=== PATIENT | female | born 1950 | race Caucasian/White ===

== ENCOUNTER 2019-02-16 16:55 | Emergency (ER) | payer MEDICARE, BC ==
--- NOTE | 2019-02-16 17:54 | EDM.PDOC ---
ED HPI GENERAL MEDICAL PROBLEM - General Chief Complaint: Cardiovascular Problem Stated Complaint: SENT OVER FROM CLINIC Time Seen by Provider: 02/16/19 17:43 Source of Information: Reports: Patient, Old Records, RN Notes Reviewed History Limitations: Reports: No Limitations - History of Present Illness INITIAL COMMENTS - FREE TEXT/NARRATIVE: Patient is a 68-year-old female who presents to the ED for the evaluation of abnormal lab work done at the clinic today. The patient was told that she needed to come to the ER as one of her lab values were abnormal. She did have a d-dimer of 1.66. The patient also characterizes that she's had swelling to her lower legs this past week which is much more than she normally does. She also states she's had some on and off shortness of breath but nothing is completely unusual for her. She denies any chest pain at this time. She states that she has had bronchitis for roughly 2 weeks so did not think much of the shortness of breath. She states that she is a former smoker but has quit. She does not note a history of any blood clotting issues, nor does she states she is on any blood thinners. - Related Data Allergies Allergy/AdvReac Type Severity Reaction Status Date / Time Penicillins Allergy Itching Verified 02/16/19 17:17 Past Medical History Musculoskeletal History: Reports: RA, Other (See Below) Other Musculoskeletal History: bunionectomy bilat - Past Surgical History HEENT Surgical History: Reports: Tonsillectomy GI Surgical History: Reports: Bariatric Procedure Social & Family History - Tobacco Use Smoking Status *Q: Former Smoker Used Tobacco, but Quit: Yes Month/Year Tobacco Last Used: 7 yrs - Caffeine Use Caffeine Use: Reports: Coffee, Soda - Recreational Drug Use Recreational Drug Use: No ED ROS GENERAL - Review of Systems Review Of Systems: See Below Constitutional: Reports: No Symptoms HEENT: Reports: No Symptoms Respiratory: Reports: Shortness of Breath, Cough Cardiovascular: Denies: Chest Pain, Orthopnea Endocrine: Reports: No Symptoms GI/Abdominal: Reports: No Symptoms : Reports: No Symptoms Musculoskeletal: Reports: No Symptoms Skin: Reports: Other (bilateral leg swelling.). Denies: Erythema Neurological: Reports: No Symptoms Psychiatric: Reports: No Symptoms Hematologic/Lymphatic: Reports: No Symptoms ED EXAM, GENERAL - Physical Exam Exam: See Below Exam Limited By: No Limitations General Appearance: Alert, WD/WN, No Apparent Distress Eye Exam: Left Eye: Normal Inspection Throat/Mouth: Normal Inspection, Normal Lips, Normal Teeth, Normal Gums, Normal Oropharynx, Normal Voice, No Airway Compromise Head: Atraumatic, Normocephalic Neck: Normal Inspection Respiratory/Chest: No Respiratory Distress, Lungs Clear, Normal Breath Sounds, No Accessory Muscle Use, Chest Non-Tender Cardiovascular: Normal Peripheral Pulses, Regular Rate, Rhythm, No Murmur, Tachycardia (107 via tele monitor) GI/Abdominal: Normal Bowel Sounds, Soft, Non-Tender, No Distention, No Mass Extremities: Normal Inspection, Normal Capillary Refill, Pedal Edema (bilateral pedal edema) Neurological: Alert, Oriented, Normal Cognition, No Motor/Sensory Deficits Psychiatric: Normal Affect, Normal Mood Skin Exam: Warm, Dry, Intact, Normal Color, No Rash Course - Vital Signs Last Recorded V/S: Last Vital Signs Temp 99.2 F 02/16/19 17:22 Pulse 98 02/16/19 17:22 Resp 20 02/16/19 17:22 BP 150/82 H 02/16/19 17:22 Pulse Ox 96 02/16/19 17:22 - Orders/Labs/Meds Orders: Active Orders 24 hr Category Date Time Status Sodium Chloride 0.9% [Normal Saline] 100 ml Med 02/16/19 18:15 Active IV ASDIRECTED Sodium Chloride 0.9% [Saline Flush] Med 02/16/19 18:05 Active 10 ml FLUSH ONETIME PRN Medication Orders Sodium Chloride (Normal Saline) 100 mls @ 80 mls/hr IV ASDIRECTED JAYME Last Admin: 02/16/19 18:26 Dose: 80 mls/hr Sodium Chloride (Saline Flush) 10 ml FLUSH ONETIME PRN PRN Reason: KEEP VEIN OPEN Last Admin: 02/16/19 18:26 Dose: 10 ml Meds: Medications Generic Name Dose Route Start Last Admin Trade Name Freq PRN Reason Stop Dose Admin Sodium Chloride 100 mls @ 80 mls/hr 02/16/19 18:15 02/16/19 18:26 Normal Saline IV 80 mls/hr ASDIRECTED JAYME Administration Sodium Chloride 10 ml 02/16/19 18:05 02/16/19 18:26 Saline Flush FLUSH 10 ml ONETIME PRN Administration KEEP VEIN OPEN Discontinued Medications Generic Name Dose Route Start Last Admin Trade Name Freq PRN Reason Stop Dose Admin Iohexol 75 ml 02/16/19 18:05 02/16/19 18:25 Omnipaque IVPUSH 02/16/19 18:06 75 ml ONETIME ONE Administration - Re-Assessments/Exams Free Text/Narrative Re-Assessment/Exam: 02/16/19 18:07 Patient presents to the ED for evaluation of an elevated d-dimer. She is having some shortness of breath, and she is tachycardic via laboratory monitor at roughly 107. Her SPO2 is 95-96% on room air. She will get a CT angio for further evaluation of a possible pulmonary embolus. She will be placed on blood thinners if indicated. 02/16/19 18:56 CT angio is negative for PE, I will order a doppler US of RLE to evaluated for possible DVT. Pt is okay with this. 02/16/19 21:17 Patient's lower leg ultrasound does not demonstrate any sign of a deep vein thrombosis within the right lower extremity or within the left common femoral vein. Will relay this information patient and discharge her home with general recommendations. Departure - Departure Time of Disposition: 21:18 Disposition: Home, Self-Care 01 Condition: Fair Clinical Impression: Abnormal laboratory test result Instructions: Edema, [id number] Referrals: PCP,None [Primary Care Provider] - Forms: ED Department Discharge Additional Instructions: You have been evaluated in the ED today for your abnormal lab value done in the clinic today. Your d-dimer was elevated at 1.66. You did receive a CT angiogram of your chest to evaluate for pulmonary embolus, and a right lower leg ultrasound to evaluate for a deep vein thrombosis. Both of these tests were negative. You do not need anticoagulation at this time. Your d-dimer may have been elevated due to your recent bronchitis, but evaluation was needed to rule out PE and DVT. Recommend that you follow up with Jenny Pascal and establish care with her as a primary care provider. Please return to the ED if your symptoms should change or worsen. - My Orders Last 24 Hours: My Active Orders 02/16/19 18:05 Sodium Chloride 0.9% [Saline Flush] 10 ml FLUSH ONETIME PRN 02/16/19 18:15 Sodium Chloride 0.9% [Normal Saline] 100 ml IV ASDIRECTED - Assessment/Plan Last 24 Hours: My Active Orders 02/16/19 18:05 Sodium Chloride 0.9% [Saline Flush] 10 ml FLUSH ONETIME PRN 02/16/19 18:15 Sodium Chloride 0.9% [Normal Saline] 100 ml IV ASDIRECTED
[2019-02-16] MEDS ORDERED: Sodium Chloride 0.9% 10 ML Syringe FLUSH PRN (18:05)
[2019-02-16] MEDS ORDERED: Iohexol 350 MG/ML 75 ML Bottle IVPUSH ONE (18:05)
[2019-02-16] MEDS ORDERED: Sodium Chloride 0.9% 100 ML IV SCH (18:15)
--- NOTE | 2019-02-16 18:48 | CT ---
CT chest Technique: Multiple axial sections were obtained from above the lung apices inferiorly through the lung bases. Intravenous contrast was utilized. Study has been performed as a pulmonary angiogram protocol. Intravenous contrast was therefore utilized. Findings: Pulmonary arteries are fairly well-opacified. No filling defects are seen to indicate pulmonary embolism. Mild atherosclerotic calcification is seen within the aorta. No aneurysm is seen. No pericardial thickening is seen. Cysts are noted within both kidneys. Previous stomach surgery is noted. No mediastinal or hilar adenopathy is seen. Lungs are clear. No acute parenchymal change is seen. No pleural effusions are noted. No pneumothorax is seen. Bone window settings were reviewed which shows mild degenerative change scattered within the spine. No acute osseous abnormality is appreciated. Impression: 1. Findings which are felt to be incidental findings as noted above. 2. No evidence of pulmonary embolism are seen. 3. Nothing acute is appreciated on CT study of the chest. Diagnostic code #2
--- NOTE | 2019-02-16 21:15 | US ---
Right lower extremity deep venous ultrasound: Duplex and color flow imaging was obtained of the right common femoral, greater saphenous, superficial femoral, popliteal, posterior tibial and peroneal veins. Left common femoral vein was also evaluated. Comparison: No prior venous imaging. Findings: Normal phasic flow, augmentation and compression is seen. Incidental lymph nodes are seen within the right inguinal region. Impression: 1. No evidence of deep venous thrombosis within the right lower extremity or within the left common femoral vein. Diagnostic code #1
== END 2019-02-16 21:33 | disposition home or self-care (01) ==
LOC: JD.ED 16:55
DX: R79.1 Abnormal coagulation profile (principal); Z88.0 Allergy status to penicillin; Z87.891 Personal history of nicotine dependence
CPT/HCPCS: 71275; 93971; 99282; J7030; Q9967; 99283